=== PATIENT | female | born 1990 | race Caucasian/White ===

== ENCOUNTER 2018-11-01 09:03 | Emergency (ER) | payer OTHER ==
[2018-11-01 09:25] VITALS: RESP 18
[2018-11-01] MEDS ORDERED: Sodium Chloride 0.9% 1,000 ML IV ONE ×2 (10:05→12:12)
--- NOTE | 2018-11-01 10:11 | C.PDOC ---
History Of Present Illness 28-year-old female presents to the ED complaining of lower abdominal pain that began at 7:00am this morning. She also complains of left-sided low back pain. Pain is described as constant. Patient states she has not eaten anything today secondary to pain, though she is tolerating PO fluids. She otherwise denies any vomiting, diarrhea, fevers, chills, dysuria, frequency, or hematuria. Patient states her last bowel movement was this morning, and was normal. LMP was 10/20/18. She denies possibility of . Patient has no prior history of abdominal surgery. Time Seen by Provider: 11/01/18 09:29 Chief Complaint (Nursing): Female Genitourinary History Per: Patient History/Exam Limitations: no limitations Onset/Duration Of Symptoms: Hrs Current Symptoms Are (Timing): Still Present Severity: Moderate Location Of Pain/Discomfort: Suprapubic Quality Of Discomfort: "Pain" Associated Symptoms: Loss Of Appetite, Back Pain Alleviating Factors: None Abnormal Vaginal Bleeding: No Last Menstral Period: 10/20/18 Past Medical History Reviewed: Historical Data, Nursing Documentation, Vital Signs Vital Signs: Last Vital Signs Temp 97.9 F 11/01/18 09:20 Pulse 72 11/01/18 09:20 Resp 18 11/01/18 09:20 BP 113/73 11/01/18 09:20 Pulse Ox 100 11/01/18 09:20 - Medical History PMH: Hypothyroidism (s/p thyroidectomy) Other Surgeries: Thyroidectomy Family History: States: No Known Family Hx - Social History Hx Alcohol Use: No Hx Substance Use: No - Immunization History Hx Tetanus Toxoid Vaccination: No Hx Influenza Vaccination: No Hx Pneumococcal Vaccination: No Review Of Systems Constitutional: Negative for: Fever, Chills Cardiovascular: Negative for: Light Headedness Gastrointestinal: Positive for: Abdominal Pain. Negative for: Vomiting, Diarrhea, Constipation Genitourinary: Negative for: Dysuria, Frequency, Incontinence, Hematuria, Vaginal Bleeding Musculoskeletal: Positive for: Back Pain Skin: Negative for: Rash Neurological: Negative for: Weakness Physical Exam - Physical Exam Appears: Non-toxic, No Acute Distress Skin: Warm, Dry Head: Atraumatic, Normacephalic Eye(s): bilateral: Normal Inspection Oral Mucosa: Moist Neck: Normal ROM Chest: Symmetrical Cardiovascular: Rhythm Regular, No Murmur Respiratory: Normal Breath Sounds, No Rales, No Rhonchi, No Wheezing Gastrointestinal/Abdominal: Soft, Tenderness (suprapubic), No Guarding, No Rebound Back: No CVA Tenderness, No Vertebral Tenderness Extremity: Bilateral: Atraumatic, Normal Color And Temperature, Normal ROM Neurological/Psych: Oriented x3, Normal Speech Gait: Steady ED Course And Treatment - Laboratory Results Result Diagrams: 11/01/18 11:04 11/01/18 11:04 O2 Sat by Pulse Oximetry: 100 (RA) Pulse Ox Interpretation: Normal - CT Scan/US CT Abdomen/Pelvis Other Rad Studies (CT/US): Read By Radiologist, Radiology Report Reviewed CT/US Interpretation: Accession No. : [id number]. Patient Name / ID : YEIMY FLORES / [id number]. Exam Date : 11/01/2018 10:34:03 ( Approved ). Study Comment : Sex / Age : F / 28Y. Creator : Linda Macias. Dictator : Cheli Phillips MD. Van Cdl Driver : Bulk Plant Operator : Cheli Phillips MD. Approver2 : Report Date : 11/01/2018 10:52:08. My Comment : . This report is currently processing and HAS NOT BEEN OFFICIALLY SIGNED BY THE PHYSICIAN - ESTIMATED TIME OF APPROVAL IS 11/01/2018 11:31. PROCEDURE: CT Abdomen and Pelvis without Oral or IV contrast. HISTORY: left flank and LLQ pain. COMPARISON: None available. TECHNIQUE: Contiguous axial images of the abdomen and pelvis. No oral or IV contrast administered. Coronal and Sagittal reformats generated and reviewed. Radiation dose: Total exam DLP = 193.84 mGy- cm. This CT exam was performed using one or more of the following dose reduction techniques: Automated exposure control, adjustment of the mA and/or kV according to patient size, and/or use of iterative reconstruction technique. FINDINGS: There is limited evaluation of the solid organs without the administration of IV contrast. LOWER THORAX: No visible consolidation, pleural effusion, or pneumothorax. LIVER: Unremarkable unenhanced appearance. GALLBLADDER AND BILE DUCTS: Unremarkable unenhanced appearance. PANCREAS: Unremarkable unenhanced appearance. SPLEEN: Unremarkable unenhanced appearance. ADRENALS: Unremarkable unenhanced appearance. KIDNEYS AND URETERS: Bilateral nonobstructing renal calculi. No hydronephrosis or obstructing renal calculus. BLADDER: The urinary bladder appears unremarkable. REPRODUCTIVE: Uterus is present. APPENDIX: The appendix appears within normal limits of caliber. No secondary signs of acute appendicitis. BOWEL: The stomach is nondistended. Lack of oral contrast limits evaluation for bowel pathology. The bowel loops appear within normal limits of caliber without evidence of intestinal obstruction. Thick-walled rectosigmoid colon. PERITONEUM: No significant free fluid. No definite free air. LYMPH NODES: No bulky lymphadenopathy identified. VASCULATURE: No aortic aneurysm. BONES: No acute osseous abnormality is detected. OTHER FINDINGS: None. IMPRESSION: Bilateral nonobstructing renal calculi. No hydronephrosis or obstructing renal calculus. Thick-walled rectosigmoid colon; correlate clinically for infectious/inflammatory etiologies. Follow-up with sigmoidoscopy/colonoscopy if indicated. Medical Decision Making Medical Decision Making: Impression: 28-year-old with suprapubic pain and left low back pain Differential Diagnosis includes but is not limited to: , UTI, renal colic, pyelonephritis, diverticulitis Initial Plan: --Blood work --UA --Urine culture --NS IV fluids --CT Abd/Pelvis without contrast Progress/Updates: 10:05 Patient requesting medication for pain. Urine POC is negative. Patient given 30 mg IV Toradol. 11:01 CT reviewed, shows bilateral non-obstructing stones. Findings discussed with patient in detail. Labs show slight leukocytosis. Will treat with IV Rocephin Patient remained afebrile and in no distress. She reported feeling much better after IV fluids, meds and antibiotics. Copies of bloodwork and CT provided. The plan is to discharge home with Rx and follow up with PCP Michel Collier Disposition Counseled Patient/Family Regarding: Studies Performed, Diagnosis, Need For Fo llowup, Rx Given - Disposition Referrals: Michel Collier, DNP, NUTRITIONAL HEALTH COACH [Advanced Practice Nurse] - Disposition: HOME/ ROUTINE Disposition Time: 12:55 Condition: GOOD Additional Instructions: Take antibiotics as prescribed twice daily for one week Follow up with your primary care provider Prescriptions: Ciprofloxacin HCl [Cipro] 500 mg PO BID #14 tab Ibuprofen [Motrin] 600 mg PO Q8 #30 tab metroNIDAZOLE [Flagyl] 500 mg PO BID #14 tab Instructions: Colitis (DC), Kidney Stones (DC) Forms: [employer] ([facility]) - POA Present On Arrival: None - Clinical Impression Clinical Impression: Renal calculus, Colitis - PA / AIRLINE CAPTAIN / Resident Statement MD/DO has reviewed & agrees with the documentation as recorded. - Scribe Statement The provider has reviewed the documentation as recorded by the Kyle Haq All medical record entries made by the Kyle were at my direction and personally dictated by me. I have reviewed the chart and agree that the record accurately reflects my personal performance of the history, physical exam, medical decision making, and the department course for this patient. I have also personally directed, reviewed, and agree with the discharge instructions and disposition.
[2018-11-01] MEDS ORDERED: Sodium Chloride 0.9% 1,000 ML ONE (10:13)
[2018-11-01 10:29] LABS: HCG,QUALITATIVE URINE NEGATIVE (NEGATIVE)
[2018-11-01 10:36] LABS: SQUAMOUS EPITHIAL < 1 /hpf (0-5); URINE BACTERIA RARE (<OCC); URINE BILIRUBIN NEGATIVE (NEGATIVE); URINE BLOOD 1+ (NEGATIVE); URINE CLARITY Clear (Clear); URINE COLOR Yellow (YELLOW); URINE GLUCOSE (UA) NORMAL (Normal); URINE LEUKOCYTE ESTERASE NEG Leu/uL (Negative); URINE PROTEIN NEGATIVE (NEGATIVE); URINE UROBILINOGEN NORMAL mg/dL (0.2-1.0); WBC CLUMPS RARE /hpf
[2018-11-01 11:14] LABS: BASO % 0.2 % (0.0-2.0); EOS # 0.1 K/uL (0.0-0.7); EOS % 0.4 % (0.0-4.0); HEMOGLOBIN 11.4 g/dL (11.0-16.0); LYMPH # 1.1 K/uL (1.0-4.3); LYMPH % 7.6 % (20.0-40.0); MEAN CORPUSCULAR HEMOGLOBIN 28.1 pg (27.0-31.0); MEAN CORPUSCULAR HGB CONC 33.5 g/dL (33.0-37.0); MEAN PLATELET VOLUME 9.6 fL (7.2-11.7); MONO # 0.4 K/uL (0.0-0.8); MONO % 2.8 % (0.0-10.0); NRBC % 0.2 % (0.0-2.0); PLATELET COUNT 181 K/uL (130-400); RBC 4.05 Mil/uL (3.80-5.20); RED CELL DISTRIBUTION WIDTH 13.1 % (11.5-14.5); WHITE BLOOD COUNT 14.6 K/uL (4.8-10.8)
--- NOTE | 2018-11-01 11:29 | CT ---
PROCEDURE: CT Abdomen and Pelvis without Oral or IV contrast. HISTORY: left flank and LLQ pain COMPARISON: None available. TECHNIQUE: Contiguous axial images of the abdomen and pelvis. No oral or IV contrast administered. Coronal and Sagittal reformats generated and reviewed. Radiation dose: Total exam DLP = 193.84 mGy-cm. This CT exam was performed using one or more of the following dose reduction techniques: Automated exposure control, adjustment of the mA and/or kV according to patient size, and/or use of iterative reconstruction technique. FINDINGS: There is limited evaluation of the solid organs without the administration of IV contrast. LOWER THORAX: No visible consolidation, pleural effusion, or pneumothorax. LIVER: Unremarkable unenhanced appearance. GALLBLADDER AND BILE DUCTS: Unremarkable unenhanced appearance. PANCREAS: Unremarkable unenhanced appearance. SPLEEN: Unremarkable unenhanced appearance. ADRENALS: Unremarkable unenhanced appearance. KIDNEYS AND URETERS: Bilateral nonobstructing renal calculi. No hydronephrosis or obstructing renal calculus. BLADDER: The urinary bladder appears unremarkable. REPRODUCTIVE: Uterus is present. APPENDIX: The appendix appears within normal limits of caliber. No secondary signs of acute appendicitis. BOWEL: The stomach is nondistended. Lack of oral contrast limits evaluation for bowel pathology. The bowel loops appear within normal limits of caliber without evidence of intestinal obstruction. Thick-walled rectosigmoid colon. PERITONEUM: No significant free fluid. No definite free air. LYMPH NODES: No bulky lymphadenopathy identified. VASCULATURE: No aortic aneurysm. BONES: No acute osseous abnormality is detected. OTHER FINDINGS: None. IMPRESSION: Bilateral nonobstructing renal calculi. No hydronephrosis or obstructing renal calculus. Thick-walled rectosigmoid colon; correlate clinically for infectious/inflammatory etiologies. Follow-up with sigmoidoscopy/colonoscopy if indicated.
[2018-11-01 11:30] LABS: ALB/GLOB RATIO 1.9 (1.0-2.1); ALBUMIN 4.5 g/dL (3.5-5.0); ALT/SGPT 17 U/L (9-52); AST/SGOT 20 U/L (14-36); BLOOD UREA NITROGEN 17 mg/dL (7-17); CALCIUM 8.2 mg/dl (8.6-10.4); GFR NON-AFRICAN AMERICAN > 60
[2018-11-01] MEDS ORDERED: cefTRIAXone IV 1 gm in Dextros 50 ML IV ONE (11:42)
[2018-11-01 11:48] LABS: LYMPHOCYTE 8 % (20-40); MONOCYTE 2 % (0-10); PLATELET ESTIMATE NORMAL (NORMAL); TOTAL CELLS COUNTED 100
[2018-11-01 11:49] LABS: HYPOCHROMIC SLIGHT; NEUTROPHIL 90 % (50-75); PLATELET CLUMPS PRESENT
[2018-11-01 12:02] VITALS: TEMP 98.6
[2018-11-01 12:56] VITALS: O2SAT 100
[2018-11-01 13:24] VITALS: BP 100/65; PULSE 82
== END 2018-11-01 13:24 | disposition home or self-care (01) ==
LOC: C.ER 09:03
DX: N20.0 Calculus of kidney (principal); K52.9 Noninfective gastroenteritis and colitis, unspecified
CPT/HCPCS: 74176; 80053; 81001; 84703; 85025; 87086; 96361; 96365; 96375; 99284; J0696; J1885; J2270; J7030